=== PATIENT | female | born 1960 | race Caucasian/White ===

== ENCOUNTER 2016-12-30 09:54 | Outpatient (CLI) | payer BC ==
--- NOTE | 2016-12-30 13:14 | Diagnostic Imaging Report ---
GRISEL BERNARD~ [facility] [address] [facility] [address] [address] ~ ~ ~ ~ Report Submission Date: Dec 30, 2016 11:13:53 AM CDT Patient ~ Study Name: JAMES SALAZAR ~ Date: Dec 30, 2016 10:10:35 AM CDT ~ Modality Type: US Gender: F ~ Description: US ABD LIMITED : 64 ~ Institution: [facility] Physician: GRISEL BERNARD ~ ~ ~ ~ Examination: Ultrasound abdomen limited History: Palpable density Comparison exams: None available Findings: Sonographic evaluation of the abdomen in the area of the soft tissue density: right upper quadrant. Just beneath the skin surface is an echogenic solid structure measuring 8.8 x 7.7 12.4 mm. No fluid in characteristics centrally. Color analysis not does not demonstrate flow centrally. Impression: Likely small subcutaneous lipoma. ~ Electronically signed on Dec 30, 2016 11:13:53 AM CDT by: Mauricio MASON
== END 2016-12-30 09:55 ==
LOC: RAD 09:54
PROVIDERS: ATTEND Family Medicine
DX: R19.01 Right upper quadrant abdominal swelling, mass and lump (principal)
CPT/HCPCS: 76705